=== PATIENT | male | born 1945 | race Caucasian/White ===

== ENCOUNTER 2022-08-09 12:27 | Emergency (ER) | payer OTHER ==
[~2022-08-09 12:27] MED LIST: Iopamidol-370 76% 500 ML 1 ML ONE
[2022-08-09 13:08] LABS: #Eosinphils 0.3 thou/uL (0.0-0.7); #Neutrophils 15.7 thou/uL (1.40-6.50); %Basophils 0.2 % (0.0-1.0); %Eosinophils 1.4 % (0.0-10.0); %Lymphocytes 5.3 % (21.0-51.0); %Monocytes 5.5 % (0.0-10.0); %Neutrophils 87.6 % (42.0-75.0); Hemoglobin 12.1 g/dL (14.0-18.0); Mean Corpuscular HGB CONC 32.8 g/dL (32.0-36.0); Mean Corpuscular Hemoglobin 30.8 pg (27.0-31.0); Mean Corpuscular Volume 94.1 fl (78.0-98.0); Mean Platelet Volume 6.8 fL (7.4-10.4); Platelet Count 657 10x3/uL (130-400); RBC Distribution Width 12.1 % (11.5-14.5); Red Blood Cell (RBC) Count 3.93 mill/uL (4.70-6.10); White Blood Cell (WBC) Count 17.9 10x3/uL (4.8-10.8)
[2022-08-09 13:21] LABS: Bilirubin Negative (Negative); Blood, Urine 2+ (Negative); Clarity Extra Turbid (Clear); Glucose, Urine (Dipstick) Normal (Negative); Ketone, Urine Negative (Negative); Leukocyte 500 Leu/uL (Negative); Nitrite Negative (Negative); Protein, Urine (Dipstick) 70 mg/dL (Neg-Trace); RBC/HPF 21-50 HPF (0-3); Squamous Epithelial 0-3 HPF (0-3); Urobilinogen Normal mg/dL (Less than 2); WBC/HPF Greater than 50 HPF (0-3)
[2022-08-09 13:22] LABS: Bacteria/HPF 1+ HPF (None Seen)
[2022-08-09 13:23] LABS: ALT (SGPT) 20 U/L (8-55); AST (SGOT) 18 U/L (5-34); Albumin 3.6 g/dL (3.4-4.8); Alkaline Phosphatase 83 U/L (40-110); Anion Gap 14 mmol/L (10-20); BUN (Urea Nitrogen) 17 mg/dL (8.4-25.7); Bilirubin, Total 0.4 mg/dL (0.2-1.2); Calc. Creatinine Clearance 0 mL/min (70-130); Carbon Dioxide 24 mmol/L (23-31); Chloride 97 mmol/L (98-107); Estimated GFR 75; Globulin 4.5 g/dL (2.4-3.5); Glucose 150 mg/dL (83-110); Potassium 2.9 mmol/L (3.5-5.1); Protein, Total 8.1 g/dL (5.8-8.1); Sodium 132 mmol/L (136-145)
[2022-08-09] MEDS ORDERED: cefTRIAXone\\ROCEPHIN 2 GM VIAL ONE (13:54)
[2022-08-09] MEDS ORDERED: Cefepime 2 GM VIAL ONE (14:06)
[2022-08-09] MEDS ORDERED: metroNIDAZOLE 500 MG/100 ML BAG ONE (15:00)
[2022-08-09] MEDS ORDERED: Magnesium 2 GM/50 ML BAG (IN WATER) ONE (16:03)
[2022-08-09] MEDS ORDERED: Potassium Chloride 20 MEQ TAB ONE (16:03)
== END 2022-08-09 16:48 | disposition short-term general hospital (02) ==
LOC: ERS 12:27
DX: A41.9 Sepsis, unspecified organism (principal); N39.0 Urinary tract infection, site not specified; L98.9 Disorder of the skin and subcutaneous tissue, unspecified; I10 Essential (primary) hypertension; E03.9 Hypothyroidism, unspecified; F17.220 Nicotine dependence, chewing tobacco, uncomplicated; Z79.899 Other long term (current) drug therapy
CPT/HCPCS: 36415; 74177; 80053; 81003; 81015; 83605; 85025; 87040; 87077; 87086; 87186; 93005; 94760; 96365; 96366; 96367; 96368; J0692; J0696; J3475; Q9967

== ENCOUNTER 2023-11-30 18:22 | Inpatient (IN) | payer MEDICARE, OTHER ==
[~2023-11-30 18:22] MED LIST changes: -Iopamidol-370 76% 500 ML 1 ML ONE; +Iopamidol-370 76% 500 ML MDV (1 ML CHARGE) ONE
[2023-11-30 19:16] LABS: Troponin I 0.097 ng/mL (< 0.028)
[2023-11-30 19:22] LABS: ALT (SGPT) 6 U/L (8-55); AST (SGOT) 13 U/L (5-34); Albumin 3.4 g/dL (3.4-4.8); Alkaline Phosphatase 49 U/L (40-110); Anion Gap 17 mmol/L (10-20); BUN (Urea Nitrogen) 23 mg/dL (8.4-25.7); Bilirubin, Total 0.4 mg/dL (0.2-1.2); Calc. Creatinine Clearance 0 mL/min (70-130); Calcium 9.8 mg/dL (7.8-10.44); Carbon Dioxide 15 mmol/L (23-31); Chloride 107 mmol/L (98-107); Estimated GFR 62; Globulin 3.9 g/dL (2.4-3.5); Glucose 114 mg/dL (83-110); Lipase 40 U/L (8-78); Potassium 3.8 mmol/L (3.5-5.1); Protein, Total 7.3 g/dL (5.8-8.1); Sodium 135 mmol/L (136-145)
[2023-11-30] MEDS ORDERED: Acetaminophen 500 MG TAB ONE (19:25)
[2023-11-30] MEDS ORDERED: Cefepime 2 GM VIAL ONE (19:25)
[2023-11-30] MEDS ORDERED: Sodium Chloride 0.9% 100 ML ONE (19:28)
[2023-11-30] MEDS ORDERED: Ondansetron PF 4 MG/2 ML Vial ONE (19:35)
[2023-11-30 19:59] LABS: Influenza A by NAA Not Detected (NotDetected); Influenza B by NAA Not Detected (NotDetected); SARS-CoV-2 NAA Rapid Test Not Detected (NotDetected)
[2023-11-30 20:50] LABS: #Basophils Less than 0.03 10x3/uL (0.0-0.2); #Eosinphils Less than 0.03 10x3/uL (0.0-0.7); %Monocytes 5.5 % (0.0-10.0); %Neutrophils 90.2 % (42.0-75.0); Hematocrit 28.7 % (42.0-52.0); Hemoglobin 9.5 g/dL (14.0-18.0); Mean Corpuscular HGB CONC 33.1 g/dL (32.0-36.0); Mean Corpuscular Hemoglobin 31.7 pg (27.0-31.0); Mean Corpuscular Volume 95.7 fL (78.0-98.0); Platelet Count 242 10x3/uL (130-400); RBC Distribution Width 14.9 % (11.5-14.5)
[2023-11-30] MEDS ORDERED: Acetaminophen 325 MG TAB PO PRN (22:54)
[2023-11-30] MEDS ORDERED: Vancomycin (BATCH) 2 GM in Premix 1 BAG IVPB SCH (23:00)
[2023-11-30] MEDS ORDERED: Aspirin Chewable 81 MG TAB ONE (23:15)
[2023-11-30] MEDS ORDERED: Morphine 4 MG/ML VIAL ONE (23:15)
[2023-11-30] MEDS ORDERED: Morphine 4 MG/ML VIAL SLOW IVP PRN (23:16)
[2023-11-30 23:39] LABS: Troponin I 0.113 ng/mL (< 0.028)
[2023-11-30] MEDS ORDERED: Ondansetron PF 4 MG/2 ML Vial IVP PRN (23:45)
[2023-11-30] MEDS ORDERED: Ondansetron ODT 4 MG TAB PO PRN (23:45)
[2023-12-01] MEDS: Vancomycin (BATCH) 1.25 GM in Premix 1 BAG IVPB SCH (01:58)
[2023-12-01] MEDS: Lactated Ringer's 1,000 ML IV SCH (01:58)
[2023-12-01 02:09] VITALS: BMI 18.1
[2023-12-01] MEDS: metroNIDAZOLE 500 MG in Premix 1 BAG IVPB SCH (03:04)
[2023-12-01] MEDS: Morphine 2 MG/ML VIAL SLOW IVP PRN (03:31)
[2023-12-01 04:16] LABS: #Basophils 0.03 10x3/uL (0.0-0.2); #Eosinphils Less than 0.03 10x3/uL (0.0-0.7); %Basophils 0.4 % (0.0-1.0); %Eosinophils 0.1 % (0.0-10.0); %Lymphocytes 12.4 % (21.0-51.0); %Monocytes 8.4 % (0.0-10.0); %Neutrophils 78.3 % (42.0-75.0); Hematocrit 21.8 % (42.0-52.0); Hemoglobin 7.2 g/dL (14.0-18.0); Mean Corpuscular Hemoglobin 30.8 pg (27.0-31.0); Mean Corpuscular Volume 93.2 fL (78.0-98.0); Platelet Count 242 10x3/uL (130-400); RBC Distribution Width 14.9 % (11.5-14.5); Red Blood Cell (RBC) Count 2.34 mill/uL (4.70-6.10)
[2023-12-01 04:41] LABS: Anion Gap 13 mmol/L (10-20); BUN (Urea Nitrogen) 24 mg/dL (8.4-25.7); Calc. Creatinine Clearance 41 mL/min (70-130); Calcium 8.7 mg/dL (7.8-10.44); Carbon Dioxide 16 mmol/L (23-31); Chloride 110 mmol/L (98-107); Estimated GFR 67; Glucose 106 mg/dL (83-110); Potassium 3.3 mmol/L (3.5-5.1); Sodium 136 mmol/L (136-145)
[2023-12-01] MEDS: Levothyroxine Sodium 100 MCG TAB PO SCH (05:03)
[2023-12-01 08:53] VITALS: BMI 18.1
[2023-12-01] MEDS: Carvedilol 3.125 MG TAB PO SCH (09:06)
[2023-12-01] MEDS: Cyanocobalamin (Vitamin B-12) 1,000 MCG TAB PO SCH (09:06)
[2023-12-01] MEDS: Flecainide 50 MG TAB PO SCH (09:06)
[2023-12-01] MEDS: Cholecalciferol 1,000 UNITS (25 MCG) TAB PO SCH (09:06)
[2023-12-01] MEDS: Losartan 25 MG TAB PO SCH (09:06)
[2023-12-01] MEDS: Apixaban 5 MG TAB PO SCH (09:06)
[2023-12-01] MEDS: Potassium Chloride 20 MEQ TAB PO SCH ×2 (09:19→10:46)
[2023-12-01] MEDS: Cefepime 1 GM in Sodium Chloride 0.9% 100 ML IVPB SCH (12:18)
[2023-12-01] MEDS ORDERED: Vancomycin 1 GM in Premix 1 BAG IVPB SCH (21:00)
[2023-12-01] MEDS: Primidone 50 MG TAB PO SCH (22:26)
[2023-12-02 06:04] LABS: #Basophils Less than 0.03 10x3/uL (0.0-0.2); %Basophils 0.2 % (0.0-1.0); %Lymphocytes 12.8 % (21.0-51.0); %Monocytes 10.9 % (0.0-10.0); %Neutrophils 74.6 % (42.0-75.0); Hemoglobin 6.7 g/dL (14.0-18.0); Mean Corpuscular HGB CONC 31.9 g/dL (32.0-36.0); Mean Corpuscular Hemoglobin 30.7 pg (27.0-31.0); Mean Corpuscular Volume 96.3 fL (78.0-98.0); Mean Platelet Volume 9.1 fL (7.4-10.4); Platelet Count 204 10x3/uL (130-400); RBC Distribution Width 14.8 % (11.5-14.5); Red Blood Cell (RBC) Count 2.18 mill/uL (4.70-6.10)
[2023-12-02 06:30] LABS: Anion Gap 13 mmol/L (10-20); BUN (Urea Nitrogen) 16 mg/dL (8.4-25.7); Calc. Creatinine Clearance 58 mL/min (70-130); Calcium 8.6 mg/dL (7.8-10.44); Carbon Dioxide 16 mmol/L (23-31); Chloride 112 mmol/L (98-107); Estimated GFR 92; Glucose 93 mg/dL (83-110); Potassium 3.6 mmol/L (3.5-5.1); Sodium 137 mmol/L (136-145)
[2023-12-02 20:43] LABS: Hematocrit 25.6 % (42.0-52.0); Hemoglobin 8.6 g/dL (14.0-18.0)
[2023-12-03 07:33] LABS: #Basophils Less than 0.03 10x3/uL (0.0-0.2); %Basophils 0.3 % (0.0-1.0); %Eosinophils 2.3 % (0.0-10.0); %Lymphocytes 14.1 % (21.0-51.0); %Monocytes 12.1 % (0.0-10.0); %Neutrophils 70.9 % (42.0-75.0); Hematocrit 24.4 % (42.0-52.0); Mean Corpuscular HGB CONC 32.8 g/dL (32.0-36.0); Mean Corpuscular Hemoglobin 30.9 pg (27.0-31.0); Mean Corpuscular Volume 94.2 fL (78.0-98.0); Mean Platelet Volume 8.7 fL (7.4-10.4); Platelet Count 207 10x3/uL (130-400); RBC Distribution Width 16.8 % (11.5-14.5); Red Blood Cell (RBC) Count 2.59 mill/uL (4.70-6.10)
[2023-12-03 07:49] LABS: Anion Gap 13 mmol/L (10-20); BUN (Urea Nitrogen) 15 mg/dL (8.4-25.7); Calc. Creatinine Clearance 67 mL/min (70-130); Calcium 8.5 mg/dL (7.8-10.44); Carbon Dioxide 19 mmol/L (23-31); Chloride 110 mmol/L (98-107); Estimated GFR 95; Glucose 97 mg/dL (83-110); Potassium 3.7 mmol/L (3.5-5.1); Sodium 138 mmol/L (136-145)
[2023-12-03 16:06] LABS: Hematocrit 24.4 % (42.0-52.0); Hemoglobin 8.1 g/dL (14.0-18.0)
[2023-12-03 16:15] VITALS: BP 122/59; TEMP 98.2
== END 2023-12-03 18:15 | disposition home or self-care (01) | DRG 871 ==
LOC: ERS 18:22 → ERHOLD 22:24 → 2NO 12-01 01:52
PROVIDERS: ADMIT Student in an Organized Health Care Education/Training Program; ATTEND Student in an Organized Health Care Education/Training Program
PROC: 30233N1 Transfusion of Nonautologous Red Blood Cells into Peripheral Vein, Percutaneous Approach (ICD-10-PCS; principal; 2023-12-02)
DX: A41.9 Sepsis, unspecified organism (principal); E43 Unspecified severe protein-calorie malnutrition; I21.A1 Myocardial infarction type 2; N12 Tubulo-interstitial nephritis, not specified as acute or chronic; C18.9 Malignant neoplasm of colon, unspecified; E87.20 Acidosis, unspecified; Z68.1 Body mass index [BMI] 19.9 or less, adult; D61.9 Aplastic anemia, unspecified; I48.91 Unspecified atrial fibrillation; Z66 Do not resuscitate; E03.9 Hypothyroidism, unspecified; I10 Essential (primary) hypertension; Z88.0 Allergy status to penicillin; Z79.899 Other long term (current) drug therapy; Z79.01 Long term (current) use of anticoagulants; Z93.3 Colostomy status; Z79.890 Hormone replacement therapy; Z87.891 Personal history of nicotine dependence; Z90.49 Acquired absence of other specified parts of digestive tract; Z92.21 Personal history of antineoplastic chemotherapy
CPT/HCPCS: 36415; 36430; 71045; 74177; 80048; 80053; 83605; 83690; 84145; 84484; 85025; 85046; 86850; 86900; 86901; 87040; 93005; 96374; J0692; J2270; J2272; J2405; J3370; J3490; J7120; P9016; Q9967

== ENCOUNTER 2024-01-14 09:47 | Inpatient (IN) | payer OTHER ==
[2024-01-14] MEDS ORDERED: Ondansetron PF 4 MG/2 ML Vial ONE (10:48)
[2024-01-14] MEDS ORDERED: Morphine 4 MG/ML VIAL ONE (10:48)
[2024-01-14] MEDS ORDERED: Iopamidol-370 76% 500 ML MDV (1 ML CHARGE) ONE (10:56)
[2024-01-14 11:42] LABS: #Basophils Less than 0.03 10x3/uL (0.0-0.2); %Basophils 0.3 % (0.0-1.0); %Eosinophils 3.5 % (0.0-10.0); %Lymphocytes 8.6 % (21.0-51.0); %Neutrophils 77.8 % (42.0-75.0); Hematocrit 18.5 % (42.0-52.0); Mean Corpuscular HGB CONC 32.4 g/dL (32.0-36.0); Mean Corpuscular Hemoglobin 30.8 pg (27.0-31.0); Mean Corpuscular Volume 94.9 fL (78.0-98.0); Mean Platelet Volume 9.7 fL (7.4-10.4); Platelet Count 427 10x3/uL (130-400); RBC Distribution Width 17.3 % (11.5-14.5); Red Blood Cell (RBC) Count 1.95 mill/uL (4.70-6.10)
[2024-01-14 12:01] LABS: ALT (SGPT) 19 U/L (8-55); AST (SGOT) 29 U/L (5-34); Albumin 2.9 g/dL (3.4-4.8); Alkaline Phosphatase 58 U/L (40-110); Anion Gap 13 mmol/L (10-20); BUN (Urea Nitrogen) 27 mg/dL (8.4-25.7); Bilirubin, Total 0.2 mg/dL (0.2-1.2); Calc. Creatinine Clearance 0 mL/min (70-130); Calcium 9.8 mg/dL (7.8-10.44); Carbon Dioxide 13 mmol/L (23-31); Chloride 105 mmol/L (98-107); Estimated GFR 90; Globulin 4.3 g/dL (2.4-3.5); Glucose 84 mg/dL (83-110); Potassium 4.5 mmol/L (3.5-5.1); Protein, Total 7.2 g/dL (5.8-8.1); Sodium 126 mmol/L (136-145)
[2024-01-14 15:16] LABS: Bacteria/HPF 4+ HPF (None Seen); Bilirubin Negative (Negative); Blood, Urine 1+ (Negative); CAUTI Indications for Culture Immunosuppressed; Clarity Turbid (Clear); Glucose, Urine (Dipstick) Normal (Negative); Ketone, Urine Negative (Negative); Leukocyte 500 Leu/uL (Negative); Nitrite Negative (Negative); Protein, Urine (Dipstick) 10 mg/dL (Neg-Trace); Specific Gravity, Urine 1.024 (1.002-1.036); Squamous Epithelial 0-3 HPF (0-3); Transitional Epithelial 0-3 HPF (None Seen); Urobilinogen Normal mg/dL (Less than 2); WBC/HPF Greater than 50 HPF (0-3); pH, Urine 6.5 (5.0-9.0)
[2024-01-14 15:18] LABS: Urine Culture Reflex Yes Yes
[2024-01-14] MEDS: Acetaminophen 325 MG TAB PO SCH (17:29)
[2024-01-14 17:57] VITALS: BMI 15.2
[2024-01-14] MEDS: Sodium Chloride 0.9% 1,000 ML IV SCH (18:07)
[2024-01-14] MEDS: cefTRIAXone\\ROCEPHIN 1 GM in Sodium Chloride 0.9% 100 ML IVPB SCH (18:07)
[2024-01-14] MEDS ORDERED: CAPECITABINE 500 MG PO SCH (21:00)
[2024-01-14] MEDS ORDERED: Famotidine 20 MG TAB PO SCH (21:00)
[2024-01-14] MEDS: Sodium Bicarbonate Tab 325 MG TAB PO SCH (21:17)
[2024-01-14] MEDS: Carvedilol 3.125 MG TAB PO SCH (21:18)
[2024-01-14] MEDS: Pantoprazole 40 MG VIAL IVP SCH (21:18)
[2024-01-14] MEDS: Flecainide 50 MG TAB PO SCH (21:18)
[2024-01-14] MEDS: Primidone 50 MG TAB PO SCH (21:18)
[2024-01-14] MEDS: HYDROcodone/Acetaminophen 5/325 mg Tablet PO PRN (21:21)
[2024-01-15 05:07] LABS: #Basophils 0.04 10x3/uL (0.0-0.2); %Basophils 0.6 % (0.0-1.0); %Lymphocytes 13.8 % (21.0-51.0); %Monocytes 14.1 % (0.0-10.0); %Neutrophils 65.9 % (42.0-75.0); Hematocrit 24.4 % (42.0-52.0); Hemoglobin 8.2 g/dL (14.0-18.0); Mean Corpuscular HGB CONC 33.6 g/dL (32.0-36.0); Mean Corpuscular Hemoglobin 30.8 pg (27.0-31.0); Mean Corpuscular Volume 91.7 fL (78.0-98.0); Mean Platelet Volume 9.1 fL (7.4-10.4); Platelet Count 343 10x3/uL (130-400); RBC Distribution Width 16.3 % (11.5-14.5); Red Blood Cell (RBC) Count 2.66 mill/uL (4.70-6.10)
[2024-01-15 05:31] LABS: ALT (SGPT) 20 U/L (8-55); AST (SGOT) 26 U/L (5-34); Albumin 2.3 g/dL (3.4-4.8); Alkaline Phosphatase 53 U/L (40-110); Anion Gap 12 mmol/L (10-20); BUN (Urea Nitrogen) 16 mg/dL (8.4-25.7); Bilirubin, Total 0.5 mg/dL (0.2-1.2); Calc. Creatinine Clearance 57 mL/min (70-130); Calcium 8.8 mg/dL (7.8-10.44); Carbon Dioxide 14 mmol/L (23-31); Chloride 114 mmol/L (98-107); Estimated GFR 96; Globulin 3.5 g/dL (2.4-3.5); Glucose 81 mg/dL (83-110); Iron Binding Capacity, Total 175 mcg/dL (261-462); Potassium 4.3 mmol/L (3.5-5.1); Protein, Total 5.8 g/dL (5.8-8.1); Sodium 136 mmol/L (136-145)
[2024-01-15] MEDS: Levothyroxine Sodium 100 MCG TAB PO SCH (05:59)
[2024-01-15] MEDS: Cholecalciferol 1,000 UNITS (25 MCG) TAB PO SCH (08:15)
[2024-01-15] MEDS: Cyanocobalamin (Vitamin B-12) 1,000 MCG TAB PO SCH (08:15)
[2024-01-15] MEDS: Ferrous Sulfate 325 MG TAB PO SCH (08:16)
[2024-01-15] MEDS: Potassium Chloride 20 MEQ TAB PO SCH (08:17)
[2024-01-15] MEDS: Losartan 25 MG TAB PO SCH (08:19)
[2024-01-15 14:25] VITALS: BMI 15.2
[2024-01-15] MEDS: Morphine 4 MG/ML VIAL SLOW IVP PRN (20:44)
[2024-01-17 08:57] VITALS: BP 119/61; TEMP 98.1
== END 2024-01-17 17:30 | disposition hospice, home (50) | DRG 374 ==
LOC: ERS 09:47 → MSONC 13:47 → OBSVTOIN 01-16 15:04
PROVIDERS: ADMIT Hospitalist; ATTEND Internal Medicine
PROC: 30233N1 Transfusion of Nonautologous Red Blood Cells into Peripheral Vein, Percutaneous Approach (ICD-10-PCS; principal; 2024-01-14)
DX: C19 Malignant neoplasm of rectosigmoid junction (principal); E43 Unspecified severe protein-calorie malnutrition; E87.1 Hypo-osmolality and hyponatremia; E87.20 Acidosis, unspecified; R64 Cachexia; Z68.1 Body mass index [BMI] 19.9 or less, adult; D62 Acute posthemorrhagic anemia; R78.81 Bacteremia; I48.91 Unspecified atrial fibrillation; Z88.0 Allergy status to penicillin; Z79.899 Other long term (current) drug therapy; Z79.01 Long term (current) use of anticoagulants; E03.9 Hypothyroidism, unspecified; Z98.890 Other specified postprocedural states; F17.220 Nicotine dependence, chewing tobacco, uncomplicated; Z51.5 Encounter for palliative care; Z66 Do not resuscitate
CPT/HCPCS: 36415; 36430; 74177; 80053; 81001; 82728; 83550; 83605; 84443; 85025; 86850; 86900; 86901; 87040; 87077; 87086; 87149; 87186; 96365; 96374; 96375; 96376; C9113; G0378; J0696; J2270; J2405; J3490; J7050; P9016; Q9967